=== PATIENT | male | born 1945 | race Caucasian/White ===

== ENCOUNTER → 2025-02-27 08:34 | Outpatient (REF) | payer MEDICARE, OTHER, SELFPAY | LOC: MRI 08:34 | PROVIDERS: ATTENDING PHYSICIAN Internal Medicine Cardiovascular Disease; PRIMARYCARE PHYSICIAN Internal Medicine | DX: I50.32 Chronic diastolic (congestive) heart failure (principal) | CPT/HCPCS: 75561; 75565; A9585 ==